=== PATIENT | male | born 1990 | race Caucasian/White ===

== ENCOUNTER 2024-03-23 17:04 | Emergency (ER) | payer BC, MEDICAID ==
[~2024-03-23] VITALS: Ht 182.9 cm; Wt 86.2 kg
[2024-03-23 17:39] VITALS: BP 130/74; TEMP 97.9
[2024-03-23] MEDS ORDERED: IBUP-1490 PO (17:59)
[2024-03-23 18:05] VITALS: O2SAT 99
== END 2024-03-23 18:10 | disposition home or self-care (01) ==
LOC: ER 17:04
DX: S92.512A Displaced fracture of proximal phalanx of left lesser toe(s), initial encounter for closed fracture (principal); W22.03XA Walked into furniture, initial encounter; Y93.89 Activity, other specified; Y92.098 Other place in other non-institutional residence as the place of occurrence of the external cause; Y99.8 Other external cause status
CPT/HCPCS: 73660-TC